=== PATIENT | female | born 1940 | race Two or more races ===

== ENCOUNTER 2018-08-10 18:27 | Inpatient (IN) | payer MEDICARE, MEDICAID ==
[~2018-08-10] VITALS: Ht 165.1 cm; Wt 111.8 kg
[2018-08-10] MEDS ORDERED: FUROSEMIDE 40MG/4ML VIAL IV ONE (21:15)
[2018-08-10] MEDS ORDERED: NITROGLYCERIN OINT 1GM/INCH UDPKT TD ONE (21:15)
[2018-08-10] MEDS ORDERED: ASPIRIN 81MG TABLET PO ONE (21:15)
[2018-08-10 21:33] LABS: BASOPHILS % 1.3 % (0.0-2.0); EOSINOPHILS % 3.8 % (0.0-5.0); HEMATOCRIT. 36.8 % (36.0-48.0); HEMOGLOBIN. 12.1 g/dL (12.0-16.0); LYMPHOCYTES % 31.9 % (20.0-50.0); MEAN CORPUSCULAR HEMOGLOBIN 31.6 pg (28.0-32.0); MEAN CORPUSCULAR VOLUME 96.1 fL (81.0-99.0); MEAN PLATELET VOLUME 12.5 fl (7.4-10.4); MONOCYTES % 8.3 % (2.0-8.0); NEUTROPHILS % 54.7 % (40.0-76.0); PLATELET 105 x1000/uL (130-400); RED BLOOD CELL COUNT 3.83 mill/uL (4.2-5.4); RED CELL DISTRIBUTION WIDTH 13.8 % (11.6-14.6)
[2018-08-10 21:34] LABS: INR 1.2; PARTIAL THROMBOPLASTIN TIME 29.4 sec (23.4-31.0); PROTHROMBIN TIME 12.4 sec (9.1-11.1)
[2018-08-10 21:38] LABS: CHLORIDE 110 mEq/L (98-107)
[2018-08-10] MEDS ORDERED: HYDRALAZINE 20MG/ML VIAL IV ONE (23:00)
[2018-08-10] MEDS ORDERED: ENOXAPARIN 100MG/ML SYR SUBCUT ONE (23:45)
[2018-08-11] MEDS ORDERED: CLONIDINE 0.2MG TABLET PO ONE (00:15)
[2018-08-11] MEDS ORDERED: ENOXAPARIN 100MG/ML SYR SUBCUT SCH (04:00)
[2018-08-11] MEDS ORDERED: CLONIDINE 0.1MG TABLET PO PRN (06:30)
[2018-08-11] MEDS ORDERED: DIPHENHYDRAMINE 50MG/ML VIAL IV PRN (06:30)
[2018-08-11] MEDS ORDERED: ONDANSETRON HCL 4MG/2ML INJ IV PRN (06:30)
[2018-08-11] MEDS ORDERED: ACETAMINOPHEN 325MG TABLET PO PRN (06:30)
[2018-08-11 06:40] LABS: BASOPHILS % 0.7 % (0.0-2.0); EOSINOPHILS % 3.9 % (0.0-5.0); HEMATOCRIT. 37.4 % (36.0-48.0); HEMOGLOBIN. 12.4 g/dL (12.0-16.0); LYMPHOCYTES % 27.9 % (20.0-50.0); MEAN CORPUSCULAR HEMOGLOBIN 31.4 pg (28.0-32.0); MEAN CORPUSCULAR VOLUME 94.9 fL (81.0-99.0); MEAN PLATELET VOLUME 12.9 fl (7.4-10.4); MONOCYTES % 6.6 % (2.0-8.0); NEUTROPHILS % 60.9 % (40.0-76.0); PLATELET 124 x1000/uL (130-400); RED BLOOD CELL COUNT 3.95 mill/uL (4.2-5.4); RED CELL DISTRIBUTION WIDTH 14.3 % (11.6-14.6)
[2018-08-11] MEDS ORDERED: FUROSEMIDE 40MG/4ML VIAL IVP SCH (09:00)
[2018-08-11] MEDS: METOPROLOL TARTRATE 25MG TABLET PO SCH ×2 (09:04→22:25)
[2018-08-11 10:00] VITALS: BP 179/102
[2018-08-11] MEDS ORDERED: CARV3.1242 MT (11:25)
[2018-08-11] MEDS ORDERED: ATOR10TA MT (11:25)
[2018-08-11] MEDS ORDERED: ALLO1POW MT (11:25)
[2018-08-11] MEDS ORDERED: APIX2.5T MT (11:25)
[2018-08-11] MEDS ORDERED: ASPI-1079 PO (11:25)
[2018-08-11] MEDS ORDERED: DOCU-138 MT (11:25)
[2018-08-11] MEDS ORDERED: ZAFI10TA2 MT (11:25)
[2018-08-11] MEDS ORDERED: PANT20TA3 PO (11:25)
[2018-08-11] MEDS ORDERED: TAP5 MT (11:25)
[2018-08-11] MEDS ORDERED: FURO-152 MT (11:25)
[2018-08-11] MEDS ORDERED: VALS40TA11 MT (11:25)
[2018-08-11] MEDS ORDERED: ALEN10TA6 MT (11:25)
[2018-08-11] MEDS ORDERED: MECL12.584 MT (11:25)
[2018-08-11] MEDS: FUROSEMIDE 40MG/4ML VIAL IVP SCH ×2 (11:42→22:24)
[2018-08-11 12:00] VITALS: BP 129/84
[2018-08-11] MEDS ORDERED: AMLODIPINE 5MG TABLET PO SCH (12:00)
[2018-08-11 12:11] LABS: CREATINE KINASE MB FRACTION 2.8 ng/mL (0.5-3.6)
[2018-08-11] MEDS: DILTIAZEM HCL 30MG TABLET PO SCH ×2 (13:59→18:17)
[2018-08-11 16:00] VITALS: BP 118/82
[2018-08-11] MEDS ORDERED: INFLUENZA VIRUS VACCINE(AFLURIA) 0.5ML SYR IM ONE (17:30)
[2018-08-11] MEDS: ENOXAPARIN 100MG/ML SYR SUBCUT SCH (18:18)
[2018-08-11 20:00] VITALS: BP 129/84
[2018-08-11 21:35] LABS: BG BASE EXCESS 3.6 mmol/L (-2.0-2.0); BG CARBOXYHEMOGLOBIN 0.2 % (0.5-1.5); BG DEOXYHEMOGLOBIN 4.3 % (0.0-5.0); BG FRACTION INSPIRED OXYGEN 21; BG HCO3 ACT 27.4 mmol/L (22.0-26.0); BG METHEMOGLOBIN 0.4 % (0.0-1.5); BG OXYGEN SATURATION 95.7 % (92.0-98.5); BG OXYHEMOGLOBIN 95.1 % (94.0-97.0); BG PCO2 38.5 mmHg (35.0-45.0); BG PO2 82.5 mmHg (75.0-100.0); BG SAMPLE SITE RIGHT RADIAL; BG TOTAL HEMOGLOBIN 12.6 g/dL (12.0-18.0); BG VENT MODE ROOM AIR
[2018-08-11] MEDS: ATORVASTATIN CALCIUM 20MG TABLET PO SCH (22:24)
[2018-08-12] VITALS: BP 143/72
[2018-08-12] MEDS: DILTIAZEM HCL 30MG TABLET PO SCH ×4 (00:50→17:10)
[2018-08-12 04:00] VITALS: BP 121/92
[2018-08-12] MEDS: FUROSEMIDE 40MG/4ML VIAL IVP SCH ×2 (06:30→17:34)
[2018-08-12] MEDS: ENOXAPARIN 100MG/ML SYR SUBCUT SCH ×2 (06:30→17:34)
[2018-08-12 08:00] VITALS: BP 130/65
[2018-08-12 08:20] LABS: CREATINE KINASE MB FRACTION 1.8 ng/mL (0.5-3.6)
[2018-08-12] MEDS ORDERED: ENOXAPARIN 40MG/0.4ML SYR SUBCUT SCH (09:00)
[2018-08-12] MEDS: POTASSIUM CHLORIDE 20MEQ TABLET SR PO SCH (09:02)
[2018-08-12] MEDS: METOPROLOL TARTRATE 25MG TABLET PO SCH (09:02)
[2018-08-12 12:00] VITALS: BP 120/72
[2018-08-12] MEDS: CARVEDILOL 12.5MG TABLET PO SCH ×2 (12:44→21:28)
[2018-08-12] MEDS: SPIRONOLACTONE 25MG TABLET PO SCH (12:44)
[2018-08-12] MEDS: LISINOPRIL 5MG TABLET PO SCH (12:45)
[2018-08-12] MEDS: AMIODARONE HCL 200 MG TABLET PO SCH ×2 (12:45→21:27)
[2018-08-12] MEDS: GABAPENTIN 300MG CAPSULE PO SCH ×2 (17:34→21:32)
[2018-08-12 20:00] VITALS: BP 117/64
[2018-08-12] MEDS: ATORVASTATIN CALCIUM 20MG TABLET PO SCH (21:27)
[2018-08-13] VITALS: BP 98/67
[2018-08-13 04:00] VITALS: BP 96/49
[2018-08-13] MEDS: FUROSEMIDE 40MG/4ML VIAL IVP SCH (06:14)
[2018-08-13] MEDS: GABAPENTIN 300MG CAPSULE PO SCH (06:14)
[2018-08-13] MEDS: ENOXAPARIN 100MG/ML SYR SUBCUT SCH (06:14)
[2018-08-13] MEDS: DILTIAZEM HCL 30MG TABLET PO SCH ×4 (06:18→17:00)
[2018-08-13 08:00] VITALS: BP 112/64
[2018-08-13] MEDS: LISINOPRIL 5MG TABLET PO SCH (09:00)
[2018-08-13] MEDS: CARVEDILOL 12.5MG TABLET PO SCH ×2 (09:00→21:23)
[2018-08-13] MEDS: POTASSIUM CHLORIDE 20MEQ TABLET SR PO SCH (09:35)
[2018-08-13] MEDS: AMIODARONE HCL 200 MG TABLET PO SCH ×2 (09:36→21:24)
[2018-08-13] MEDS: SPIRONOLACTONE 25MG TABLET PO SCH (09:37)
[2018-08-13 12:00] VITALS: BP 102/55
[2018-08-13 13:23] LABS: BASOPHILS % 1.1 % (0.0-2.0); EOSINOPHILS % 2.6 % (0.0-5.0); HEMATOCRIT. 37.2 % (36.0-48.0); HEMOGLOBIN. 12.2 g/dL (12.0-16.0); LYMPHOCYTES % 32.5 % (20.0-50.0); MEAN CORPUSCULAR HEMOGLOBIN 31.2 pg (28.0-32.0); MEAN CORPUSCULAR VOLUME 95.3 fL (81.0-99.0); MEAN PLATELET VOLUME 12.1 fl (7.4-10.4); MONOCYTES % 10.7 % (2.0-8.0); NEUTROPHILS % 53.1 % (40.0-76.0); PLATELET 128 x1000/uL (130-400); RED CELL DISTRIBUTION WIDTH 14.2 % (11.6-14.6)
[2018-08-13 14:00] LABS: PHOSPHORUS 4.6 mg/dL (2.5-4.9)
[2018-08-13 16:00] VITALS: BP 113/60
[2018-08-13] MEDS ORDERED: RIVAROXABAN 20 MG TABLET PO SCH (17:00)
[2018-08-13 20:00] VITALS: BP 147/80
[2018-08-13] MEDS ORDERED: MAGNESIUM 2 G PREMIX 50 ML IV SCH (20:00)
[2018-08-13] MEDS: ATORVASTATIN CALCIUM 20MG TABLET PO SCH (21:23)
[2018-08-13] MEDS: RIVAROXABAN 15 MG TABLET PO SCH (21:24)
[2018-08-14] VITALS: BP 117/51
[2018-08-14 01:40] LABS: CLARITY URINE CLEAR (CLEAR); COLOR URINE YELLOW (YELLOW); KETONES URINE NEGATIVE (NEGATIVE); LEUKOCYTE ESTERASE URINE TRACE (NEGATIVE); NITRITE URINE NEGATIVE (NEGATIVE); OCCULT BLOOD URINE NEGATIVE (NEGATIVE); PH URINE 5.5 (4.5-8.0); PROTEIN URINE NEGATIVE (NEGATIVE); UROBILINOGEN URINE 0.2 E.U./dL (0.2-1.0)
[2018-08-14 04:00] VITALS: BP 114/63
[2018-08-14 07:11] LABS: BASOPHILS % 1.2 % (0.0-2.0); EOSINOPHILS % 2.8 % (0.0-5.0); HEMOGLOBIN. 12.1 g/dL (12.0-16.0); LYMPHOCYTES % 39.7 % (20.0-50.0); MEAN CORPUSCULAR HEMOGLOBIN 30.8 pg (28.0-32.0); MEAN CORPUSCULAR VOLUME 94.5 fL (81.0-99.0); MEAN PLATELET VOLUME 11.4 fl (7.4-10.4); MONOCYTES % 9.5 % (2.0-8.0); NEUTROPHILS % 46.8 % (40.0-76.0); PLATELET 141 x1000/uL (130-400); RED BLOOD CELL COUNT 3.91 mill/uL (4.2-5.4); RED CELL DISTRIBUTION WIDTH 14.4 % (11.6-14.6)
[2018-08-14] MEDS: FUROSEMIDE 40MG/4ML VIAL IVP SCH (09:55)
[2018-08-14] MEDS: POTASSIUM CHLORIDE 20MEQ TABLET SR PO SCH (09:55)
[2018-08-14] MEDS: AMIODARONE HCL 200 MG TABLET PO SCH ×2 (09:56→21:29)
[2018-08-14] MEDS: LISINOPRIL 5MG TABLET PO SCH (09:57)
[2018-08-14] MEDS: DILTIAZEM HCL 30MG TABLET PO SCH ×2 (09:58→17:00)
[2018-08-14] MEDS: SPIRONOLACTONE 25MG TABLET PO SCH (09:59)
[2018-08-14] MEDS: CARVEDILOL 12.5MG TABLET PO SCH ×2 (10:00→21:30)
[2018-08-14 12:00] VITALS: BP 115/61
[2018-08-14 16:00] VITALS: BP 106/56
[2018-08-14] MEDS: RIVAROXABAN 15 MG TABLET PO SCH (18:09)
[2018-08-14 20:00] VITALS: BP 118/58
[2018-08-14] MEDS: ATORVASTATIN CALCIUM 20MG TABLET PO SCH (21:29)
[2018-08-15] VITALS: BP 116/74
[2018-08-15 04:00] VITALS: BP 115/70
[2018-08-15 06:15] LABS: BASOPHILS % 0.8 % (0.0-2.0); EOSINOPHILS % 2.6 % (0.0-5.0); HEMATOCRIT. 37.5 % (36.0-48.0); HEMOGLOBIN. 12.5 g/dL (12.0-16.0); LYMPHOCYTES % 39.4 % (20.0-50.0); MEAN CORPUSCULAR HEMOGLOBIN 31.5 pg (28.0-32.0); MEAN CORPUSCULAR VOLUME 94.5 fL (81.0-99.0); MONOCYTES % 9.9 % (2.0-8.0); NEUTROPHILS % 47.3 % (40.0-76.0); PLATELET 122 x1000/uL (130-400); RED BLOOD CELL COUNT 3.97 mill/uL (4.2-5.4); RED CELL DISTRIBUTION WIDTH 14.2 % (11.6-14.6)
[2018-08-15] MEDS: FUROSEMIDE 40MG/4ML VIAL IVP SCH (08:55)
[2018-08-15] MEDS: DILTIAZEM HCL 30MG TABLET PO SCH ×2 (08:56→18:01)
[2018-08-15] MEDS: SPIRONOLACTONE 25MG TABLET PO SCH (08:56)
[2018-08-15] MEDS: POTASSIUM CHLORIDE 20MEQ TABLET SR PO SCH (08:57)
[2018-08-15] MEDS: CARVEDILOL 12.5MG TABLET PO SCH (08:58)
[2018-08-15] MEDS: AMIODARONE HCL 200 MG TABLET PO SCH (08:58)
[2018-08-15] MEDS: LISINOPRIL 5MG TABLET PO SCH (08:59)
[2018-08-15 12:00] VITALS: BP 111/52
[2018-08-15 16:00] VITALS: BP 122/49
[2018-08-15 16:55] VITALS: BP 122/49
[2018-08-15] MEDS: RIVAROXABAN 15 MG TABLET PO SCH (18:01)
== END 2018-08-15 18:30 | disposition home health service (06) | DRG 308 ==
LOC: ER 18:27 → 5WST 08-11 00:08 → ENRESERV 08-11 08:25 → 5EST 08-15 18:13 → 5WST 08-15 18:16
PROVIDERS: ADMIT Internal Medicine Nephrology; ATTEND Internal Medicine Nephrology
DX: I48.1 Persistent atrial fibrillation (principal); I50.41 Acute combined systolic (congestive) and diastolic (congestive) heart failure; Z68.41 Body mass index [BMI] 40.0-44.9, adult; I42.0 Dilated cardiomyopathy; E78.5 Hyperlipidemia, unspecified; E78.00 Pure hypercholesterolemia, unspecified; E66.01 Morbid (severe) obesity due to excess calories; I27.20 Pulmonary hypertension, unspecified; I11.0 Hypertensive heart disease with heart failure; I08.1 Rheumatic disorders of both mitral and tricuspid valves; G89.29 Other chronic pain; M54.5 Low back pain; J44.9 Chronic obstructive pulmonary disease, unspecified; K21.9 Gastro-esophageal reflux disease without esophagitis; N19 Unspecified kidney failure; I95.9 Hypotension, unspecified; N28.89 Other specified disorders of kidney and ureter; T42.6X5A Adverse effect of other antiepileptic and sedative-hypnotic drugs, initial encounter; Y92.89 Other specified places as the place of occurrence of the external cause; Z82.49 Family history of ischemic heart disease and other diseases of the circulatory system; Z80.8 Family history of malignant neoplasm of other organs or systems; Z90.711 Acquired absence of uterus with remaining cervical stump; Z87.891 Personal history of nicotine dependence; Z91.19 Patient's noncompliance with other medical treatment and regimen; Z87.11 Personal history of peptic ulcer disease
CPT/HCPCS: 36415; 36600; 71045; 76700; 78582; 80048; 80061; 82375; 82550; 82553; 82805; 83735; 83880; 84100; 84443; 84484; 93005; 93306; 93970; 96372; 96374; 97162; 99291; A9558; J0360; J1650; J1940; J3475; J7050

== ENCOUNTER 2019-03-30 13:58 | Inpatient (IN) | payer MEDICARE, OTHER ==
[~2019-03-30] VITALS: Ht 165.1 cm; Wt 111.1 kg
[~2019-03-30 13:58] MED LIST: ALEN10TA7 MT; ALLO1POW MT; APIX2.5T MT; ASPI-1079 PO; DOCU-138 MT; MECL12.584 MT; PANT20TA3 PO; TAP5 MT; VALS40TA11 MT; ZAFI10TA2 MT
[2019-03-30] MEDS ORDERED: IPRATROPIUM BROMIDE (0.02%) 0.5MG/2.5ML NEB HHN STA (15:07)
[2019-03-30] MEDS ORDERED: ASPIRIN 81MG TABLET PO ONE (15:15)
[2019-03-30] MEDS ORDERED: FUROSEMIDE 40MG/4ML VIAL IV ONE (15:15)
[2019-03-30 15:36] LABS: BASOPHILS % 1.1 % (0.0-2.0); EOSINOPHILS % 1.8 % (0.0-5.0); HEMATOCRIT. 34.3 % (36.0-48.0); HEMOGLOBIN. 11.5 g/dL (12.0-16.0); LYMPHOCYTES % 26.4 % (20.0-50.0); MEAN CORPUSCULAR HEMOGLOBIN 31.8 pg (28.0-32.0); MEAN CORPUSCULAR VOLUME 94.7 fL (81.0-99.0); MEAN PLATELET VOLUME 11.9 fl (7.4-10.4); NEUTROPHILS % 62.7 % (40.0-76.0); PLATELET 85 x1000/uL (130-400); RED BLOOD CELL COUNT 3.62 mill/uL (4.2-5.4); RED CELL DISTRIBUTION WIDTH 14.7 % (11.6-14.6)
[2019-03-30 15:37] LABS: CHLORIDE 109 mEq/L (98-107)
[2019-03-30 15:42] LABS: INR 1.3; PARTIAL THROMBOPLASTIN TIME 33.1 sec (23.4-31.0); PROTHROMBIN TIME 13.4 sec (9.6-11.0)
[2019-03-30] MEDS ORDERED: DILTIAZEM HCL 90MG TABLET PO ONE (16:15)
[2019-03-30] MEDS ORDERED: DILTIAZEM HCL 5MG/ML 5ML VIAL IV ONE (16:15)
[2019-03-30] MEDS: ALBUTEROL (0.083%) 2.5MG/3ML NEB HHN SCH ×3 (16:18→17:20)
[2019-03-30] MEDS: CLONIDINE 0.1MG TABLET PO PRN (17:59)
[2019-03-30 18:28] VITALS: BP 130/87
[2019-03-30] MEDS: DILTIAZEM HCL 60MG TABLET PO SCH (18:50)
[2019-03-30] MEDS: APIXABAN 5 MG TABLET PO SCH (18:50)
[2019-03-30 20:00] VITALS: BP 152/97
[2019-03-30 22:00] VITALS: BP 116/39
[2019-03-31] VITALS (11 sets, daily range): BP systolic 115–170; BP diastolic 47–96
[2019-03-31] MEDS: DILTIAZEM HCL 60MG TABLET PO SCH ×5 (01:35→23:43)
[2019-03-31 06:24] LABS: CHLORIDE 106 mEq/L (98-107)
[2019-03-31 06:26] LABS: BASOPHILS % 0.9 % (0.0-2.0); EOSINOPHILS % 3.3 % (0.0-5.0); HEMATOCRIT. 35.1 % (36.0-48.0); HEMOGLOBIN. 11.6 g/dL (12.0-16.0); LYMPHOCYTES % 25.8 % (20.0-50.0); MEAN CORPUSCULAR HEMOGLOBIN 31.5 pg (28.0-32.0); MEAN CORPUSCULAR VOLUME 95.5 fL (81.0-99.0); MEAN PLATELET VOLUME 11.1 fl (7.4-10.4); MONOCYTES % 9.9 % (2.0-8.0); NEUTROPHILS % 60.1 % (40.0-76.0); PLATELET 104 x1000/uL (130-400); RED BLOOD CELL COUNT 3.68 mill/uL (4.2-5.4); RED CELL DISTRIBUTION WIDTH 15.1 % (11.6-14.6)
[2019-03-31 06:35] LABS: CREATINE KINASE 109 IU/L (26-192)
[2019-03-31 06:38] LABS: CREATINE KINASE MB FRACTION 2.5 ng/mL (0.5-3.6)
[2019-03-31] MEDS: APIXABAN 5 MG TABLET PO SCH ×2 (08:29→08:52)
[2019-03-31] MEDS ORDERED: POTASSIUM CHLORIDE 20MEQ TABLET SR PO NR ×2 (09:20→14:00)
[2019-03-31] MEDS ORDERED: POTASSIUM CHLORIDE 20MEQ TABLET SR PO SCH (10:00)
[2019-03-31] MEDS ORDERED: MAGNESIUM 2 G PREMIX 50 ML IV NR (10:00)
[2019-03-31] MEDS: FUROSEMIDE 40MG/4ML VIAL IVP SCH ×2 (13:47→17:34)
[2019-03-31] MEDS: LOSARTAN POTASSIUM 25 MG TABLET PO SCH ×2 (13:49→20:46)
[2019-03-31] MEDS ORDERED: ASPI-1393 PO (16:29)
[2019-03-31] MEDS ORDERED: LISI-186 PO (16:30)
[2019-03-31] MEDS ORDERED: AMI2 PO (16:30)
[2019-03-31] MEDS ORDERED: XAR15 PO (16:30)
[2019-03-31] MEDS ORDERED: DILT30TA38 PO (16:31)
[2019-03-31] MEDS ORDERED: MECL-109 PO (16:32)
[2019-03-31] MEDS ORDERED: POTA20TA82 PO (16:32)
[2019-03-31] MEDS ORDERED: ATOR20TA65 PO (16:33)
[2019-03-31] MEDS ORDERED: CARV12.545 PO (16:33)
[2019-03-31] MEDS ORDERED: FURO-151 PO (16:34)
[2019-03-31] MEDS ORDERED: ALEN70TA68 PO (16:35)
[2019-03-31] MEDS: POTASSIUM CHLORIDE 20MEQ TABLET SR PO SCH (17:34)
[2019-03-31] MEDS: RIVAROXABAN 15 MG TABLET PO SCH (17:35)
[2019-03-31] MEDS: GUAIFENESIN 600MG ER TABLET PO SCH (20:46)
[2019-04-01] VITALS (12 sets, daily range): BP systolic 126–180; BP diastolic 60–105
[2019-04-01] MEDS: DILTIAZEM HCL 60MG TABLET PO SCH (06:18)
[2019-04-01 07:13] LABS: BASOPHILS % 0.3 % (0.0-2.0); EOSINOPHILS % 3.1 % (0.0-5.0); HEMATOCRIT. 33.7 % (36.0-48.0); HEMOGLOBIN. 11.2 g/dL (12.0-16.0); LYMPHOCYTES % 26.7 % (20.0-50.0); MEAN CORPUSCULAR HEMOGLOBIN 31.6 pg (28.0-32.0); MEAN CORPUSCULAR VOLUME 94.7 fL (81.0-99.0); MEAN PLATELET VOLUME 11.3 fl (7.4-10.4); MONOCYTES % 10.1 % (2.0-8.0); NEUTROPHILS % 59.8 % (40.0-76.0); PLATELET 107 x1000/uL (130-400); RED BLOOD CELL COUNT 3.56 mill/uL (4.2-5.4); RED CELL DISTRIBUTION WIDTH 14.9 % (11.6-14.6)
[2019-04-01 07:26] LABS: CHLORIDE 105 mEq/L (98-107)
[2019-04-01] MEDS: FUROSEMIDE 40MG/4ML VIAL IVP SCH ×2 (08:06→17:15)
[2019-04-01] MEDS: GUAIFENESIN 600MG ER TABLET PO SCH (08:06)
[2019-04-01] MEDS: LOSARTAN POTASSIUM 25 MG TABLET PO SCH (08:07)
[2019-04-01] MEDS: POTASSIUM CHLORIDE 20MEQ TABLET SR PO SCH ×2 (08:07→17:34)
[2019-04-01] MEDS ORDERED: POTASSIUM CHLORIDE 20MEQ TABLET SR PO SCH (10:00)
[2019-04-01] MEDS ORDERED: MAGNESIUM 2 G PREMIX 50 ML IV SCH (12:00)
[2019-04-01] MEDS: RIVAROXABAN 15 MG TABLET PO SCH (17:34)
[2019-04-01] MEDS: CLONIDINE 0.1MG TABLET PO PRN (17:34)
[2019-04-01] MEDS ORDERED: DILTIAZEM HCL 180MG CAPSULE CD 24HR PO SCH (21:00)
== END 2019-04-01 19:03 | disposition home health service (06) | DRG 308 ==
LOC: ER 13:58 → 3WST 16:28 → EDBEDREQSVC 16:30 → EDBEDREQ 16:30 → EDBEDREQTM 16:30 → ENRESERV 16:36
PROVIDERS: ADMIT Internal Medicine Pulmonary Disease; ATTEND Internal Medicine Pulmonary Disease
PROC: 02HV33Z Insertion of Infusion Device into Superior Vena Cava, Percutaneous Approach (ICD-10-PCS; principal; 2019-03-31)
PROC: B5181ZA Fluoroscopy of Superior Vena Cava using Low Osmolar Contrast, Guidance (ICD-10-PCS; 2019-03-31)
PROC: B548ZZA Ultrasonography of Superior Vena Cava, Guidance (ICD-10-PCS; 2019-03-31)
DX: I48.91 Unspecified atrial fibrillation (principal); I50.23 Acute on chronic systolic (congestive) heart failure; I42.9 Cardiomyopathy, unspecified; Z68.41 Body mass index [BMI] 40.0-44.9, adult; I11.0 Hypertensive heart disease with heart failure; E66.01 Morbid (severe) obesity due to excess calories; D69.6 Thrombocytopenia, unspecified; E87.6 Hypokalemia; E83.42 Hypomagnesemia; J45.909 Unspecified asthma, uncomplicated; I27.20 Pulmonary hypertension, unspecified; I08.3 Combined rheumatic disorders of mitral, aortic and tricuspid valves; E78.5 Hyperlipidemia, unspecified; E78.00 Pure hypercholesterolemia, unspecified; Z80.8 Family history of malignant neoplasm of other organs or systems; Z82.49 Family history of ischemic heart disease and other diseases of the circulatory system; Z90.710 Acquired absence of both cervix and uterus; Z91.19 Patient's noncompliance with other medical treatment and regimen
CPT/HCPCS: 36415; 36573; 71045; 76937; 80048; 82550; 82553; 83735; 83880; 84443; 84484; 85379; 93005; 93306; 93970; 94644; 96374; 96375; 97162; 99291; C1725; J1940; J3475; J3490; J7611

== ENCOUNTER 2019-06-09 06:13 | Inpatient (IN) | payer MEDICARE, OTHER ==
[2019-06-09] VITALS (16 sets, daily range): BP systolic 136–175; BP diastolic 73–114
[~2019-06-09] VITALS: Ht 165.1 cm; Wt 105.7 kg
[~2019-06-09 06:13] MED LIST changes: -ALEN10TA7 MT; -ALLO1POW MT; -APIX2.5T MT; -ASPI-1079 PO; +ATOR20TA65 PO; +FURO-151 PO; -MECL12.584 MT; -PANT20TA3 PO; +POTA20TA82 PO; -TAP5 MT; -VALS40TA11 MT; +XAR15 PO; -ZAFI10TA2 MT
[2019-06-09] MEDS ORDERED: LIDOCAINE HCL 1% 20ML VIAL (Pyxis) INJ ONE (08:10)
[2019-06-09] MEDS ORDERED: FENTANYL CITRATE/PF 50MCG/ML 2ML VIAL ONE (08:11)
[2019-06-09] MEDS ORDERED: MIDAZOLAM HCL 2 MG/2 ML VIAL ONE (08:11)
[2019-06-09] MEDS ORDERED: IODIXANOL 320MG/ML 100 ML BOTTLE IV ONE (08:11)
[2019-06-09] MEDS ORDERED: FURO40TA5 MT (08:19)
[2019-06-09] MEDS ORDERED: DOCU250C19 MT (08:19)
[2019-06-09] MEDS ORDERED: PENT400T16 MT (08:19)
[2019-06-09] MEDS ORDERED: ALLO100T57 PO (08:19)
[2019-06-09] MEDS ORDERED: DICL75TA5 MT (08:19)
[2019-06-09] MEDS ORDERED: POTA20TA82 MT (08:19)
[2019-06-09] MEDS ORDERED: XAR15 MT (08:19)
[2019-06-09] MEDS ORDERED: MECL-159 MT (08:19)
[2019-06-09] MEDS ORDERED: COR6 PO (08:19)
[2019-06-09] MEDS ORDERED: HYDR-4135 MT (08:19)
[2019-06-09] MEDS ORDERED: TAP5 PO (08:19)
[2019-06-09] MEDS ORDERED: ALD50 PO (08:19)
[2019-06-09] MEDS ORDERED: ALBU05 IH (08:19)
[2019-06-09] MEDS ORDERED: ALBU90AE IH (08:19)
[2019-06-09] MEDS ORDERED: FUROSEMIDE 40MG/4ML VIAL ONE (09:04)
[2019-06-09] MEDS ORDERED: VERAPAMIL HCL 2.5 MG/1 ML 2ML VIAL IV ONE ×2 (09:12→09:23)
[2019-06-09] MEDS ORDERED: ONDANSETRON HCL 4MG/2ML INJ IV PRN (09:30)
[2019-06-09] MEDS ORDERED: ATROPINE SULFATE 1MG/10ML SYR IV PRN (09:30)
[2019-06-09] MEDS ORDERED: ACETAMINOPHEN 325MG TABLET PO PRN ×2 (09:30→10:45)
[2019-06-09] MEDS ORDERED: HEPARIN SODIUM 1,000 UNIT/1ML VIAL IV ONE (10:24)
[2019-06-09] MEDS ORDERED: NITROGLYCERIN 50MCG/ML 10ML VIAL (CATH LAB) IV ONE (10:24)
[2019-06-09] MEDS ORDERED: NICARDIPINE 100MCG/ML 10ML VIAL (CATH LAB) IV ONE (10:24)
[2019-06-09] MEDS ORDERED: ZOLPIDEM TARTRATE 5MG TABLET PO PRN (10:45)
[2019-06-09] MEDS ORDERED: DIGOXIN 500MCG/2ML AMP IV NR ×2 (10:45→13:00)
[2019-06-09] MEDS ORDERED: ENALAPRIL 1.25MG/ML VIAL 1ML IV PRN (11:30)
[2019-06-09 12:19] LABS: EOSINOPHILS % 1.7 % (0.0-5.0); HEMATOCRIT. 34.6 % (36.0-48.0); HEMOGLOBIN. 11.7 g/dL (12.0-16.0); LYMPHOCYTES % 30.2 % (20.0-50.0); MEAN CORPUSCULAR HEMOGLOBIN 31.4 pg (28.0-32.0); MEAN CORPUSCULAR VOLUME 93.5 fL (81.0-99.0); MEAN PLATELET VOLUME 11.1 fl (7.4-10.4); MONOCYTES % 9.4 % (2.0-8.0); NEUTROPHILS % 57.7 % (40.0-76.0); PLATELET 113 x1000/uL (130-400); RED BLOOD CELL COUNT 3.71 mill/uL (4.2-5.4)
[2019-06-09 12:37] LABS: CHLORIDE 110 mEq/L (98-107)
[2019-06-09] MEDS ORDERED: PNEUMOCOCCAL VACCINE IM ONE (13:00)
[2019-06-09] MEDS ORDERED: INFLUENZA VACCINE IM ONE (13:00)
[2019-06-09] MEDS: METHIMAZOLE 5MG TABLET PO SCH ×2 (13:23→17:00)
[2019-06-09] MEDS ORDERED: POTASSIUM CHLORIDE 20MEQ/PACKET PO SCH (13:45)
[2019-06-09] MEDS: MAGNESIUM OXIDE 400MG TABLET PO SCH (15:21)
[2019-06-09] MEDS ORDERED: MAGNESIUM 2 G PREMIX 50 ML IV NR (16:00)
[2019-06-09] MEDS: FUROSEMIDE 40MG/4ML VIAL IVP SCH (16:59)
[2019-06-09] MEDS: PENTOXIFYLLINE 400MG TABLET PO SCH (17:00)
[2019-06-09] MEDS: SPIRONOLACTONE 25MG TABLET PO SCH (17:00)
[2019-06-09] MEDS ORDERED: DIGOXIN 500MCG/2ML AMP IV SCH (18:00)
[2019-06-09] MEDS ORDERED: ATORVASTATIN CALCIUM 20MG TABLET PO SCH (21:00)
[2019-06-09] MEDS: CARVEDILOL 6.25 MG TABLET PO SCH (21:38)
[2019-06-10] VITALS (8 sets, daily range): BP systolic 117–164; BP diastolic 58–91
[2019-06-10 07:19] LABS: BASOPHILS % 1.1 % (0.0-2.0); EOSINOPHILS % 2.1 % (0.0-5.0); HEMATOCRIT. 34.7 % (36.0-48.0); HEMOGLOBIN. 11.6 g/dL (12.0-16.0); LYMPHOCYTES % 15.3 % (20.0-50.0); MEAN CORPUSCULAR HEMOGLOBIN 31.3 pg (28.0-32.0); MEAN CORPUSCULAR VOLUME 93.4 fL (81.0-99.0); MONOCYTES % 8.5 % (2.0-8.0); PLATELET 131 x1000/uL (130-400); RED BLOOD CELL COUNT 3.71 mill/uL (4.2-5.4); RED CELL DISTRIBUTION WIDTH 14.9 % (11.6-14.6)
[2019-06-10] MEDS: FUROSEMIDE 40MG/4ML VIAL IVP SCH (08:52)
[2019-06-10] MEDS: METHIMAZOLE 5MG TABLET PO SCH (08:53)
[2019-06-10] MEDS: CARVEDILOL 6.25 MG TABLET PO SCH (08:53)
[2019-06-10] MEDS: PENTOXIFYLLINE 400MG TABLET PO SCH (08:53)
[2019-06-10] MEDS: MAGNESIUM OXIDE 400MG TABLET PO SCH (08:53)
[2019-06-10] MEDS: SPIRONOLACTONE 25MG TABLET PO SCH (08:53)
[2019-06-10] MEDS ORDERED: RIVAROXABAN 15 MG TABLET PO SCH (17:20)
== END 2019-06-10 14:05 | disposition home health service (06) | DRG 286 ==
LOC: CCL 06:13 → 3WST 06:14
PROVIDERS: ADMIT Specialist; ATTEND Specialist
PROC: 4A023N7 Measurement of Cardiac Sampling and Pressure, Left Heart, Percutaneous Approach (ICD-10-PCS; principal; 2019-06-09)
PROC: B2111ZZ Fluoroscopy of Multiple Coronary Arteries using Low Osmolar Contrast (ICD-10-PCS; 2019-06-09)
PROC: B2151ZZ Fluoroscopy of Left Heart using Low Osmolar Contrast (ICD-10-PCS; 2019-06-09)
DX: I25.10 Atherosclerotic heart disease of native coronary artery without angina pectoris (principal); I50.23 Acute on chronic systolic (congestive) heart failure; I48.20 Chronic atrial fibrillation, unspecified; I13.0 Hypertensive heart and chronic kidney disease with heart failure and stage 1 through stage 4 chronic kidney disease, or unspecified chronic kidney disease; I08.1 Rheumatic disorders of both mitral and tricuspid valves; I42.0 Dilated cardiomyopathy; E78.5 Hyperlipidemia, unspecified; E66.09 Other obesity due to excess calories; N18.9 Chronic kidney disease, unspecified; E87.6 Hypokalemia; E05.90 Thyrotoxicosis, unspecified without thyrotoxic crisis or storm; Z82.49 Family history of ischemic heart disease and other diseases of the circulatory system; Z79.01 Long term (current) use of anticoagulants; Z68.38 Body mass index [BMI] 38.0-38.9, adult
CPT/HCPCS: 36415; 80048; 83735; 84443; 85025; 90686; 90732; 93005; 93458; C1769; C1887; C1893; J1160; J1644; J1940; J2250; J3010; J3475; J3490; Q9967